=== PATIENT | female | born 1985 | race American Indian/Alaskan Native ===

== ENCOUNTER 2017-05-14 13:30 | Inpatient (IN) | payer OTHER ==
[~2017-05-14] VITALS: Ht 157.5 cm; Wt 76.2 kg
[2017-06-08] MEDS ORDERED: PRENATAL 19 TA1 EACH PO (09:44)
[2017-06-08] MEDS ORDERED: INDERAL LA80 MG PO (09:45)
== END 2017-06-10 16:02 | DRG 775 ==
LOC: OB/GYN 06-07 13:30 → SURG-SUITE 06-08 07:00 → LDR 06-08 07:00 → OB/GYN 06-08 13:27 → SURG-SUITE 06-08 13:49
PROC: 0KQM0ZZ Repair Perineum Muscle, Open Approach (ICD-10-PCS; principal; 2017-06-08)
PROC: 10E0XZZ Delivery of Products of Conception, External Approach (ICD-10-PCS; 2017-06-08)
PROC: 0UQMXZZ Repair Vulva, External Approach (ICD-10-PCS; 2017-06-08)
PROC: 4A1HXCZ Monitoring of Products of Conception, Cardiac Rate, External Approach (ICD-10-PCS; 2017-06-08)
PROC: 3E033VJ Introduction of Other Hormone into Peripheral Vein, Percutaneous Approach (ICD-10-PCS; 2017-06-08)
PROC: 4A033R1 Measurement of Arterial Saturation, Peripheral, Percutaneous Approach (ICD-10-PCS; 2017-06-08)
DX: O70.1 Second degree perineal laceration during delivery (principal); Z37.0 Single live birth; O48.0 Post-term pregnancy; Z3A.40 40 weeks gestation of pregnancy